=== PATIENT | male | born 1995 | race Caucasian/White ===

== ENCOUNTER 2025-06-05 09:23 | Emergency (ER) | payer BC ==
[~2025-06-05] VITALS: Ht 180.3 cm; Wt 90.7 kg
[2025-06-05 09:32] VITALS: BP 126/76; TEMP 98.2
[2025-06-05] MEDS ORDERED: TDAP [DIPH/PERTUSSIS/TET] 0.5 ML VIAL IM ONE (09:53)
[2025-06-05] MEDS: TDAP [DIPH/PERTUSSIS/TET] 0.5 ML VIAL IM ONE (10:01)
[2025-06-05 11:09] VITALS: O2SAT 96
== END 2025-06-05 11:09 | disposition home or self-care (01) ==
LOC: ER 09:23
DX: S01.511A Laceration without foreign body of lip, initial encounter (principal); Y04.0XXA Assault by unarmed brawl or fight, initial encounter; Y93.89 Activity, other specified; Y92.89 Other specified places as the place of occurrence of the external cause; Y99.8 Other external cause status
CPT/HCPCS: 99285; 70450; 90471; 90715; 70486; A6403 ×3